=== PATIENT | male | born 2000 | race Caucasian/White ===

== ENCOUNTER 2024-01-03 00:43 | Emergency (ER) | payer SELFPAY ==
[~2024-01-03] VITALS: Ht 188 cm; Wt 86.2 kg
[2024-01-03 01:00] VITALS: PULSE 74; RESP 22; TEMP 97; O2SAT 95
[2024-01-03 01:26] VITALS: BP 129/78; PULSE 74; RESP 22; TEMP 97; O2SAT 95
== END 2024-01-03 01:27 ==
LOC: MED 00:43
DX: F41.9 Anxiety disorder, unspecified (principal); F15.90 Other stimulant use, unspecified, uncomplicated; Z79.899 Other long term (current) drug therapy
CPT/HCPCS: 99283